=== PATIENT | male | born 1960 | race Caucasian/White ===

== ENCOUNTER 2016-03-27 19:55 | Emergency (ER) | payer OTHER ==
[~2016-03-27] VITALS: Ht 177.8 cm; Wt 118.2 kg
[~2016-03-27 19:55] MED LIST: ASPI81TA40 PO; CLOP75TA14; FISH PO; PROT40T PO; PRV40T PO; VARE0.5T PO
[2016-03-27 19:56] VITALS: BP 156/95; PULSE 78; RESP 16; O2SAT 95
[2016-03-27 20:40] LABS: BASOPHILS % (AUTO) 0.2 % (0-3); EOSINOPHILS % (AUTO) 1.5 % (0-5); MONOCYTES % (AUTO) 6.4 % (4-12); Mean Corpuscular Hemoglobin 28.5 pg (27.0-35.0); Mean Corpuscular Volume 84.2 fL (81-100); NEUTROPHILS % (AUTO) 79.4 % (40-74); Platelet Count 217 bil/L (150-400)
--- NOTE | 2016-03-27 20:44 | ED.REPORT ---
HPI-General Illness Date of Service Mar 27, 2016 ED Provider: Vicente Negron MD Pt is a 55 y/o male with a hx of diabetes mellitus, hypertension, coronary artery disease, and GERD who presents to the ER complaining of lower abdominal pain and several episodes of dark tarry stool that began this morning. Patient reports a single episode of sharp RUQ abdominal pain that lasted for 30 seconds last night. This morning pt had nausea and diaphoresis while driving to work, at which time he felt light headed. Today pt had feelings of urgency, discomfort in abdomen, cramping, and then noticed hematochezia. Pt denies vomiting and fever. Pt takes low dose aspirin daily, ibuprofen a few times a week for neck pain, and is on Plavix. He is also on Protonix, Metformin, Atenolol, and antibiotics for a dental infection. Pt has not eaten today and has loss of appetite. The patient has an appointment to see GI in [place] on April 11 for a colonoscopy. Nursing Notes Stated Complaint: ABDOMINAL PAIN/BLOOD IN STOOL Chief Complaint: Male Abdominal Pain Nursing Notes Reviewed: Yes (OrderBorder not reconciled, MR indicates history of clopidogrel) Allergies: Coded Allergies: codeine (Verified Allergy, Mild, HIVES, 04/18/09) Scheduled Aspirin-Expunged Drug, Do Not Renew! (Aspirin-Expunged Drug, Do Not Renew!) 81 Mg Tab.chew 81 MG PO DAILY Clopidogrel-Expunged Drug, Do Not Renew! (Plavix-Expunged Drug, Do Not Renew!) 75 Mg Tablet MG DAILY Fish Oil-Expunged Drug, Do Not Renew! (Fish Oil-Expunged Drug, Do Not Renew!) Cap 1,000 MG PO DAILY Pantoprazole-Expunged Drug, Do Not Renew! (Protonix-Expunged Drug, Do Not Renew! ) 40 Mg Tablet.dr 40 MG PO DAILY Pravastatin-Expunged Drug, Do Not Renew! (Pravachol-Expunged Drug, Do Not Renew! ) 40 Mg Tablet 40 MG PO DAILY Varenicline Tartrate (Chantix) 0.5 Mg Tablet 0.5 MG PO BID Scheduled PRN Hydrocodone-Acetaminophen 5-325 mg (Hydrocodone-Acetaminophen 5-325 mg) 1 Each Tablet 1-2 TABLET PO BID PRN PRN For Pain General Time Seen by MD: 20:42 Chief Complaint Abdominal pain (RLQ), Blood in stool Hx Obtained From: Patient Arrived By: Walk-in Sudden in Onset?: Yes Onset Occurred: 1 - 4 hours ago Symptom Duration: Since onset Severity: Current: No pain currently Severity: Maximum: No pain Recent Healthcare: No recent doctor visit, No recent hospitalization Similar Sx Previous: No Past Medical History Past Medical History Reports: Coronary artery disease, Diabetes mellitus, GERD, Hyperlipidemia, Hypertension Past Surgical History cardiac stenting 3x in 2009 skin graft right thigh Smoking History Current Every Day Smoker Social History Other Social History: Good social support, Local resident Ambulatory Status Independent Review of Systems Full Review of Systems Constitutional: Denies: Fever Respiratory: Denies: Non-productive cough, Shortness of breath Cardiovascular: Denies: Chest pain GI: Reports: Abdominal pain (lower abdominal), Bloody/tarry stool, Hematochezia , Nausea (RLQ), Denies: Diarrhea, Vomiting Skin: Reports Diaphoresis Complete sys rev & neg: except as marked. Physical Exam Vital Signs Vital Signs Date Time Temp Pulse Resp B/P Pulse Ox O2 Delivery O2 Flow Rate FiO2 03/27/16 19:56 37.2 78 16 156/95 95 Initial VS: Reviewed General/Constitutional: Well-developed, Well-nourished Head / Eyes: Atraumatic, Normocephalic, PERRL ENT: Mucous membranes moist, Conjunctiva normal, No scleral icterus Respiratory: Breath sounds normal, Clear to auscultation, No respiratory distress Cardiovascular: Regular rate & rhythm, Heart sounds normal, Intact distal pulses Extremities: Vascular intact, Neuro intact, No swelling, No tenderness Skin: Warm, Dry Neurologic: Alert, Oriented, Nonfocal Psychiatric: Mood/affect normal, Behavior normal, Normal thought content General/Constitutional: Awake, Alert, No acute distress, Well appearing, Not toxic appearing Head / Eyes: Atraumatic, Normocephalic, PERRL Abdomen: Soft, Non-tender cramping in abdomen pain in lower adbomen Rectum / Perineum: No hemorrhoids Rectal for Blood: Positive: Blood - occult heme + black stool and bright red blood Interpretation & Diagnostics Lab Results Interpretation Result Diagram: 03/27/16203403/27/162034 Test 03/27/16 20:30 03/27/16 20:35 Urine Color Yellow (YELLOW) Urine Appearance Clear (CLEAR,HAZY) Urine pH 5.5 (5.0-8.0) Urine Specific [place] 1.015 (1.003-1.035) Urine Protein Negativemg/dL (NEG,TRACE) Urine Glucose (UA) Negativemg/dL (NEGATIVE) Urine Ketones Negativemg/dL (NEGATIVE) Urine Occult Blood Large (NEGATIVE) Urine Nitrite Negative (NEGATIVE) Urine Bilirubin Negative (NEGATIVE) Urine Urobilinogen Normalmg/dL (NORMAL) Urine Leukocyte Esterase Negative (NEGATIVE) Urine RBC 0-2/hpf (0-2) Urine WBC 0-5/hpf (0-5) Urine Epithelial Cells Occasional/hpf (NONE-MOD) Urine Crystals None seen (NONE SEEN) Urine Bacteria None/hpf (NONE-FEW) Urine Hyaline Casts None/lpf (NONE) Urine Granular Casts None seen (NONE SEEN) Urine Waxy Casts None seen (NONE SEEN) Urine Red Blood Cell Casts None seen (NONE SEEN) Urine White Blood Cell Casts None seen (NONE SEEN) Urine Mucus None seen (None Seen) Urine Trichomonas None seen (NONE SEEN) Urine Yeast None (NONE SEEN) Urinalysis Comment None Urine Culture Reflexed Not indicated White Blood Count 12.2th/mm3 (3.8-10.1) Red Blood Count 4.74mil/mm3 (4.40-5.80) Hemoglobin 13.5g/dL (13.8-17.2) Hematocrit 39.9% (41.0-50.0) Mean Corpuscular Volume 84.2fL (81-100) Mean Corpuscular Hemoglobin 28.5pg (27.0-35.0) Mean Corpuscular Hemoglobin Concent 33.8% (32.0-37.0) Red Cell Distribution Width 13.5% (12.3-15.4) Platelet Count 217bil/L (150-400) Neutrophils (%) (Auto) 79.4% (40-74) Lymphocytes (%) (Auto) 12.4% (14-46) Monocytes (%) (Auto) 6.4% (4-12) Eosinophils (%) (Auto) 1.5% (0-5) Basophils (%) (Auto) 0.2% (0-3) Prothrombin Time 10.7sec (8.1-12.5) Prothromb Time International Ratio 1.00ratio Sodium Level 138mEq/L (134-144) Potassium Level 3.9mEq/L (3.5-5.2) Chloride Level 101mEq/L (97-108) Carbon Dioxide Level 22mmol/L (18-29) Blood Urea Nitrogen 15mg/dL (6-24) Creatinine 0.88mg/dL (0.76-1.27) Estimat Glomerular Filtration Rate 96mL/min (>59) Glucose Level 173mg/dL (60-99) Lactic Acid Level 1.5mmol/L (0.4-2.0) Calcium Level 8.7mg/dL (8.5-10.1) Magnesium Level 1.8mg/dL (1.6-2.6) Total Bilirubin 0.6mg/dL (0.0-1.2) Aspartate Amino Transf (AST/SGOT) 29U/L (0-50) Alanine Aminotransferase (ALT/SGPT) 27U/L (0-44) Alkaline Phosphatase 51U/L (25-150) Total Protein 6.7g/dL (6.4-8.4) Albumin 3.7g/dL (3.4-5.0) Lipase 28U/L (13-60) Lab Results Interpretation: CBC mild leukocytosis, normal hematocrit with no anemia CMP normal Stool PCR panel ordered ECG Interpretation Time: 21:24 Interpreted by: ED physician Normal ECG Interpretation: Normal sinus rhythm, No acute ischemic changes CT Abd / Pelvis Interpretation IMPRESSION: 1. Circumferential wall thickening involving the proximal left colon compatible with nonspecific colitis. 2. The appendix is normal. 3. Cholelithiasis. 4. Colonic diverticulosis without evidence of diverticulitis. 5. 1.2 cm left adrenal myelolipoma. 6. Hepatic steatosis. 7. Dense atherosclerotic calcifications involving the visualized coronary vasculature. Dictated by: Beatrice Swenson MD, PhD on 03/27/2016 at 21:54 Approved by: Beatrice Swenson MD, PhD on 03/27/2016 at 21:54 Study type: Abdominal CT no contrast Interpretation / Wet Read by: Interpret - Radiologist Re-Eval/Medical Decision Med Decision/Clinical Course This is a 55-year-old gentleman with a history of coronary disease is no longer on Plavix but is on daily aspirin who presents complaining of abdominal cramping , less dark stools, mild diarrhea, and blood in the stools today. Procedure cramping last night, and works down at [employer] so uses a dana potty and did not really notice anything other than he had to go the bathroom more often was having abdominal cramps-but when he got home he noticed there was blood, called his PCP is advised to come in. He did have an episode earlier when he was driving in the [place] he felt dizzy lightheaded- but he has had no near syncopal events since then. He denies fevers or chills. He just recently had dental procedures and is currently on a combination of Augmentin and then metronidazole. He has also had occult blood positive stools in recent weeks, and is scheduled to undergo colonoscopy on the this month is [facility]. His no prior history of GI bleeding, no prior history of colitis. Patient has normal vitals, he complains of some crampy abdominal pain, and he does have dark stools, mixed with some gross blood, and is guaiac positive. Blood work reveals trace leukocytosis, but no anemia. The abdominal cramping component is quite pronounced, CT imaging was pursued, and is interpreted per the radiologist is positive for left-sided colitis. Given the absence anemia, presence of colitis, and the patient's hemodynamic currently normal with reasonable labs, hospital admission is not required. He was less likely to be an infectious colitis given the absence of fever or other symptoms, although C. difficile is in the differential given his current antibiotic use the timing is rather rapid. Because it is in the differential, a GI stool PCR panel has been ordered. The patient be safely discharged for some supportive medications and reports hydrocodone as worked well. He will finish his course of Avelox. I will contact his GI provider. And I have asked the [facility] to electronically transmit ( PACS) CT scan imaging up to [place] to the [facility], and abdomen informed that this is been successfully accomplished. Routine precautions reviewed. A work note has been provided. The patient is being discharged in stable conditions. 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 Source of Hx: Old records Time of Eval: 21:11 Patient Status: Condition improved Re-Evaluation/Progress Note: Pt rechecked. Informed pt of lab results and plan for CT scan. Pt understands and agrees with plan. Time of Eval: 23:05 Patient Status: Condition improved Re-Evaluation/Progress Note: Discussed CT results. Patient understands and agrees with the plan for discharge. He should followed-up with GI as planned. All questions were addressed. Return to the ED warnings given. Differential Diagnosis: Positive: Abdominal pain, Negative: Acute coronary syndrome, Allergies, Asthma, Laceration, Malingering , Neutropenia, Pneumonia, Seizure disorder, Syncope Counseled Regarding: Diagnosis, Lab results, Need for follow-up, When/why to return to ED Discharge & Departure Primary Impression: Colitis Disposition: Home Discharge Condition All VS Reviewed: Yes Condition: Stable Additional Instructions: 1. Your symptoms and CT reveal inflammation of the colon causing the abdominal cramping and bleeding. Your blood counts were normal. 2. The next step in evaluating colitis is a colonoscopy - keep the plans for colonoscopy in [place] as currently scheduled. Do call them and let them know you were seen in the ED for colitis and that you had a CT scan and the images have been electronically transmitted. 3. Stool studies have been sent. These take 1-2 days for results. Call for results. In the meantime continue and complete the Augmentin (amox+ clavulanate) and metronidazole that you are currently taking). 4. Take hydrocodone/APAP 5/325 1-2 tabs up to twice a day as needed for pain/ cramping. NOTE: This medication contains a narcotic and causes drowsiness. No driving or operating heaving machinery for at least 4 hours after taking. 5. Return if new or worsening or uncontrolled symptoms. Referrals: Michael Norton MD (PCP) Scribe Attestation Portion of this note were transcribed by Lidai Peter and Kailash Antonio. I, Dr. Negron, personally performed the history, physcial exam, and medical decision- making: I reviewed and confirmed the accuracy for the information in the transcribed note. Signed by: Giselle Goldsmith, 03/27/16 [id number] Signed by: Giselle Chapman, 03/27/2016 [id number] copies to: PloudrMichael woodward MD, Matthew F MD Mar 27, 2016 20:44 KAILASH ANTONIO Mar 27, 2016 21:12 Lidia Peter Mar 27, 2016 21:34
[2016-03-27 20:53] LABS: APPEARANCE,URINE CLEAR (CLEAR,HAZY); COLOR,URINE YELLOW (YELLOW)
[2016-03-27 20:54] LABS: OCCULT BLOOD,URINE LARGE (NEGATIVE); PH,URINE 5.5 (5.0-8.0); UROBILINOGEN,URINE NORMAL (NORMAL)
[2016-03-27 21:06] LABS: Magnesium 1.8 mg/dL (1.6-2.6)
--- NOTE | 2016-03-27 21:56 | DRSVH ---
PROCEDURE: CT ABDOMEN AND PELVIS WITH CONTRAST ([id number]) INDICATIONS: abd pain TECHNIQUE: After the administration of intravenous contrast, 5 mm thick sections acquired from the diaphragm to the symphysis. 5 mm coronal and sagittal reformats were acquired. For radiation dose reduction, the following was used: automated exposure control, adjustment of mA and/or kV according to patient siz e. COMPARISON: None. FINDINGS: Image quality: Excellent. ABDOMEN: Lung bases: Lung bases are clear. Heart size is normal. Dense atherosclerotic calcifications are no yoanna in the visualized coronary vasculature. Solid organs: Liver and spleen are normal in size and enhancement. Diffuse fatty infiltration of the liver is noted. Gallbladder contains small gallstones.. Biliary system is non dilated. Pancreas e nhances normally. A 1.2 cm fat density lesions noted in the left adrenal gland compatible with adrena l myelolipoma. Kidneys demonstrate normal size and enhancement, without hydronephrosis. Peritoneum and bowel: Bowel loops demonstrate normal caliber. Circumferential wall thickening noted in the proximal left colon compatible with nonspecific colitis. Scattered diverticuli noted in the s igmoid colon left colon without evidence of diverticulitis. He is colitis or diverticulitis No free f luid or air. The appendix is normal. Nodes and vessels: No retroperitoneal or mesenteric adenopathy by size criteria. Aorta and inferior vena cava are normal in size. Scattered atherosclerotic ossifications noted in the abdominal and pel brunilda vasculature. Miscellaneous: No ventral hernias. PELVIS: Genitourinary: Bladder wall thickness is normal. Miscellaneous: No inguinal hernias or adenopathy. Bones: No suspicious bony lesions. No vertebral body compression fractures. Spine degenerative disc disease and facet arthropathy are noted. IMPRESSION: 1. Circumferential wall thickening involving the proximal left colon compatible with nonspecific col itis. 2. The appendix is normal. 3. Cholelithiasis. 4. Colonic diverticulosis without evidence of diverticulitis. 5. 1.2 cm left adrenal myelolipoma. 6. Hepatic steatosis. 7. Dense atherosclerotic calcifications involving the visualized coronary vasculature. Dictated by: Beatrice Swenson MD, PhD on 03/27/2016 at 21:54 Approved by: Beatrice Swenson MD, PhD on 03/27/2016 at 21:54
[2016-03-27] MEDS ORDERED: _HYDROcodone/APAP 5-325 mg Tablet PO PRN (22:25)
[2016-03-27] MEDS ORDERED: HYDR-4003 PO (22:47)
[2016-03-27 23:51] VITALS: BP 132/75; PULSE 78; O2SAT 96
[2016-03-28] VITALS: BP 132/75; PULSE 78; O2SAT 96
== END 2016-03-28 00:01 | disposition home or self-care (01) ==
LOC: SED 19:55
DX: K52.9 Noninfective gastroenteritis and colitis, unspecified (principal); K21.9 Gastro-esophageal reflux disease without esophagitis; I10 Essential (primary) hypertension; E11.9 Type 2 diabetes mellitus without complications; I25.10 Atherosclerotic heart disease of native coronary artery without angina pectoris; E78.5 Hyperlipidemia, unspecified; F17.200 Nicotine dependence, unspecified, uncomplicated; Z79.82 Long term (current) use of aspirin; Z88.5 Allergy status to narcotic agent
CPT/HCPCS: 36415; 74177; 80053; 81000; 82272; 83605; 83690; 83735; 85025; 85610; 86850; 93005; 99284; Q9967